=== PATIENT | female | born 1985 | race Caucasian/White ===

== ENCOUNTER 2016-11-23 10:30 | Day surgery (SDC) | payer OTHER ==
[~2016-11-23] VITALS: Ht 167.6 cm; Wt 62.7 kg
[~2016-11-23 10:30] MED LIST: IBUP800T PO; PNV1TABL4 PO; PREN1TAB52 PO
[2016-11-23] MEDS ORDERED: LEVO75TA5 PO (11:07)
[2016-11-23] MEDS ORDERED: LACTATED RINGERS 1,000 ML IV SCH (11:07)
[2016-11-23 11:08] VITALS: BP 117/78
[2016-11-23] MEDS ORDERED: LIDOCAINE 1%, 2ML ONE (11:15)
[2016-11-23] MEDS ORDERED: FENTANYL PF 100 MCG/2ML ONE (11:19)
[2016-11-23] MEDS ORDERED: MIDAZOLAM 1 MG/ML, 2ML ONE (11:19)
[2016-11-23 11:29] LABS: HEMOGLOBIN 12.9 g/dL (11.7-16.4); WHITE BLOOD COUNT 6.9 x10^3/uL (3.4-10)
[2016-11-23] MEDS ORDERED: LIDOCAINE 1%, 2ML SQ PRN (11:30)
[2016-11-23] MEDS ORDERED: OXYTOCIN 10 UNITS/ML, 1ML ONE (11:39)
[2016-11-23] MEDS ORDERED: SILVER NITRATE STICK TP ONE (11:40)
[2016-11-23] MEDS ORDERED: METHYLERGONOVINE 0.2 MG/ML IM ONE (11:40)
[2016-11-23] MEDS ORDERED: MISOPROSTOL 200 MCG TABLET ONE (11:40)
[2016-11-23] MEDS ORDERED: LIDOCAINE/PF 1%, 30ML ONE (11:44)
[2016-11-23] MEDS ORDERED: VASOPRESSIN 20 UNIT/ML, 1ML ONE (11:44)
[2016-11-23] MEDS ORDERED: HYDROmorphone 1 MG/ML, 1ML IV PRN (12:30)
[2016-11-23] MEDS ORDERED: ALBUTEROL/IPRATROPIUM 2.5MG/0.5MG, 3 ML NPPB PRN (12:30)
[2016-11-23] MEDS ORDERED: PROMETHAZINE 25 MG/ML, 1ML IV PRN (12:30)
[2016-11-23] MEDS ORDERED: LABETALOL 5MG/ML, 20ML IV PRN (12:30)
[2016-11-23] MEDS ORDERED: MEPERIDINE/PF 25MG/0.5ML IVPush PRN (12:30)
[2016-11-23] MEDS ORDERED: FENTANYL PF 100 MCG/2ML IV PRN (12:30)
[2016-11-23] MEDS ORDERED: hydrALAzine 20 MG/ML, 1ML IV PRN (12:30)
[2016-11-23] MEDS ORDERED: OXYcodone 5 MG/5 ML ORAL.SOL UDC PO PRN (12:30)
[2016-11-23] MEDS ORDERED: ONDANSETRON 2MG/ML, 2ML IVPush PRN (12:30)
[2016-11-23] MEDS ORDERED: ACETAMINOPHEN 325 MG TABLET PO PRN (12:30)
[2016-11-23] MEDS ORDERED: MIDAZOLAM 1 MG/ML, 2ML IV PRN (12:30)
[2016-11-23 13:06] VITALS: BP 104/65
[2016-11-23 13:10] VITALS: BP 102/65
[2016-11-23] MEDS ORDERED: METOCLOPRAMIDE 5 MG/ML, 2ML ONE (16:06)
[2016-11-23] MEDS ORDERED: DEXAMETHASONE 4 MG/ML, 1ML ONE (16:06)
[2016-11-23] MEDS ORDERED: ONDANSETRON 2MG/ML, 2ML ONE (16:06)
[2016-11-23] MEDS ORDERED: KETOROLAC 30 MG/1 ML ONE (16:06)
[2016-11-23] MEDS ORDERED: PROPOFOL 10 MG/ML, 20ML ONE (16:06)
== END 2016-11-23 15:15 ==
LOC: OUT 10:30
PROVIDERS: ATTEND Obstetrics & Gynecology
DX: O02.1 Missed abortion (principal); E03.9 Hypothyroidism, unspecified; K21.9 Gastro-esophageal reflux disease without esophagitis; Z98.890 Other specified postprocedural states; Z3A.01 Less than 8 weeks gestation of pregnancy
CPT/HCPCS: 36415; 59820; 84702; 85025; 86850; 86900; 88305; J1100; J1885; J2250; J2405; J2704; J2765; J2790; J3010; J3490; J7120; J2210; J2590